=== PATIENT | female | born 1965 | race Caucasian/White ===

== ENCOUNTER 2019-05-19 21:11 | Emergency (ER) | payer SELFPAY ==
[2019-05-19 21:38] VITALS: TEMP 98.3; BMI 25.7
[2019-05-19] MEDS ORDERED: LIDOCAINE PATCH REMOVAL MC SCH (22:00)
--- NOTE | 2019-05-19 22:36 | PDOC ---
Attending Attestation - Resident Resident Name: Afshin Henderson - ED Attending Attestation I have performed the following: I have examined & evaluated the patient, The case was reviewed & discussed with the resident, I agree w/resident's findings & plan - HPI HPI: 05/20/19 06:19 Pt comes with back pain; was seen at [facility] by a PA who told her that she may have an aortic aneurysm. They scared her and she came to the ER. Here BP is divergent in her arms. No tearing back pain. Only paraspinal back pain. - Physicial Exam PE: 05/19/19 23:11 Low back paraspinal muscle spasm and pain with palpation, however pain is not intense. Pt has BP left arm 152/90; right arm 177/99 Pt is afebrile. Normal heart and lungs No flank pain and no abd pain and no extremity pains. - Medical Decision Making 05/20/19 00:42 Patient Name: ALEXSANDER HERNANDEZ THIS IS A PRELIMINARY REPORT FROM [facility] DATE OF SERVICE: 2019-05-19 23:19:12 IMAGES: 34 EXAM: AORTA US HISTORY: Lower back pain. COMPARISON: None. Preliminary findings/impression: The abdominal aorta is normal in caliber, without evidence of aneurysmal dilation.
[2019-05-19] MEDS ORDERED: ACETAMINOPHEN 500 MG TABLET (FP) PO ONE (22:46)
[2019-05-19] MEDS ORDERED: LIDOCAINE 5% TOPICAL PATCH TP ONE (22:47)
[2019-05-19] MEDS ORDERED: ACETAMINOPHEN 325 MG TABLET (FP) ONE (22:50)
[2019-05-19] MEDS ORDERED: LIDOCAINE 5% TOPICAL PATCH ONE (22:51)
--- NOTE | 2019-05-19 23:02 | PDOC ---
History of Present Illness - General Chief Complaint: Back Pain Stated Complaint: BACK PAIN Time Seen by Provider: 05/19/19 22:24 History Source: Patient, Friend ("Sister in [place]" present at bedside.) Exam Limitations: No Limitations - History of Present Illness Initial Comments: HPI: 53 y/o female presenting to [facility] ER on referral from Latoya Majano by MELONIE Bueno for further evaluation of back pain. Pt reports she has been experiencing bilateral lower back pain since Tuesday of last week. Pain is worse early in the morning and when bending at the waist. One episode of worse pain with radiation to the front of her abdomen on . Attempted relief with Motrin and two doses of an unknown antibiotic with limited success. Believes she lifted water bottles the day before. Denies urinary retention, bowel incontinence, or numbness/tinging in lower extremities. Denies h/o of STDs. Medical Hx: - H/o of uterine fibroids - Pt is post menopausal Review of Systems: In addition to that documented in the HPI above, the additional ROS was obtained : Constitutional: Denies fevers or syncope ENMT: Denies sore throat CV: Denies chest pain Resp: Denies SOB GI: Denies vomiting, diarrhea, or constipation : Denies dysuria, hematuria, or urinary frequency Physical Examination: Constitutional: Well-developed, well-nourished adult female in no acute distress or obvious discomfort. Found sitting in hospital chair. Answered all questions appropriately and completely. Speech was non-labored, non-pressured. Head: Normocephalic. No obvious external signs of trauma. Cardiovascular / Chest: Regular rate and regular rhythm. No murmur, rubs, clicks , or gallops. Peripheral pulses: radial pulses full. Respiratory: Breathing unlabored. Equal chest rise and fall. Clear to auscultation bilaterally. No stridor, no wheezing, no rhonchi. Gastrointestinal: abdomen is soft, non-tender, non-distended.No pulsatile masses. Neuro: Alert and oriented x4. Moving all four extremities spontaneously. Gait normal. MSK: Diffuse tenderness to bilateral lower paraspinal areas. Pain reproducible with bending at the past. No change with lateral rotation. No midline tenderness or obvious deformity. Skin: Warm, dry, and intact. : No R or L CVA tenderness. Psych: Affect: appropriate. Mood: normal. Past History - Past Medical History Allergies/Adverse Reactions: Allergies Allergy/AdvReac Type Severity Reaction Status Date / Time No Known Allergies Allergy Verified 05/19/19 21:37 - Psycho Social/Smoking Cessation Hx Smoking History: Never smoked *Physical Exam - Vital Signs Last Vital Signs Temp Pulse Resp BP Pulse Ox 98.3 F 77 19 146/83 99 05/19/19 21:34 05/19/19 21:34 05/19/19 21:34 05/19/19 21:34 05/19/19 21:34 ED Treatment Course - RADIOLOGY Radiograph Interpretation: U/S Eval of Aorta: THIS IS A PRELIMINARY REPORT FROM [facility] DATE OF SERVICE: 2019-05-19 23:19:12 IMAGES: 34 EXAM: AORTA US HISTORY: Lower back pain. COMPARISON: None. Preliminary findings/impression: The abdominal aorta is normal in caliber, without evidence of aneurysmal dilation. THIS DOCUMENT HAS BEEN ELECTRONICALLY SIGNED Vazquez Wood MD 05/20/2019 00:17 EST - Medications Given in the ED: ED Medications Discontinued Medications Generic Name Dose Route Start Last Admin Trade Name Germain PRN Reason Stop Dose Admin Acetaminophen 975 mg 05/19/19 22:46 05/19/19 22:55 Tylenol - PO 05/19/19 22:47 975 mg ONCE ONE Administration Lidocaine 1 patch 05/19/19 22:47 05/19/19 22:55 Lidoderm Patch - TP 05/19/19 22:48 1 patch ONCE ONE Administration Discharge - Discharge Information Problems reviewed: Yes Clinical Impression/Diagnosis: Back pain Qualifiers: Back pain location: low back pain Chronicity: acute Back pain laterality: bilateral Sciatica presence: without sciatica Qualified Code(s): M54.5 - Low back pain Condition: Good Disposition: HOME - Admission No - Follow up/Referral - Patient Discharge Instructions Patient Printed Discharge Instructions: DI for Low Back Pain Additional Instructions: You were seen today for right and left lower back pain for the past week. Your urine test was normal. Your ultrasound was normal. Your pain is likely from a muscle strain. You can take over the counter Tylenol or Advil as needed for pain. Take as directed on the package insert. Do not exceed the recommended dosage. You can also try applying heat to the area. Follow up with your primary care doctor within the next 3-4 days. You will need to call to make an appointment. A copy of todays results are attached to this packet. Take it to the appointment so your doctor can review them. Go to the nearest emergency department if your condition worsens or you feel like you need additional emergency evaluation. Print Language: AUSTRIAN - Post Discharge Activity
[2019-05-19 23:05] LABS: EPI CELLS 2.5 /HPF (0-5/HPF); HYALINE CASTS 1 /lpf (0-8); URINE APPEARANCE CLEAR; URINE BACTERIA 4.7 /hpf (NEGATIVE); URINE BILIRUBIN NEGATIVE (NEGATIVE); URINE COLOR YELLOW; URINE GLUCOSE (UA) NEGATIVE (NEGATIVE); URINE KETONE NEGATIVE (NEGATIVE); URINE LEUK ESTERASE TRACE (NEGATIVE); URINE NITRITE NEGATIVE (NEGATIVE); URINE PROTEIN NEGATIVE (NEGATIVE); URINE RBC 4 /hpf (0-4); URINE UROBILINOGEN 0.2 mg/dL (0.2-1.0); URINE WBC 3 /hpf (0-5)
[2019-05-19] MEDS ORDERED: METHOCARBAMOL 500 MG TABLET PO ONE (23:06)
[2019-05-19] MEDS ORDERED: METHOCARBAMOL 500 MG TABLET ONE (23:07)
[2019-05-20 00:45] VITALS: BP 146/87; PULSE 86
== END 2019-05-20 00:46 | disposition home or self-care (01) ==
LOC: JER 21:11
DX: M54.5 Low back pain (principal); Z86.2 Personal history of diseases of the blood and blood-forming organs and certain disorders involving the immune mechanism
CPT/HCPCS: 76775-TC; 81003; 87086; 99282-25

== ENCOUNTER 2019-09-05 17:39 | Emergency (ER) | payer OTHER ==
--- NOTE | 2019-09-05 17:53 | PDOC ---
Rapid Medical Evaluation Time Seen by Provider: 09/05/19 17:50 Medical Evaluation: Allergies Allergy/AdvReac Type Severity Reaction Status Date / Time No Known Allergies Allergy Verified 05/19/19 21:37 09/05/19 17:50 Pt presents to the ER for cough for 8 days. States she is bringing up green mucus. Exam: lungs ctab, NAD Orders: nothing Pt to proceed to the ER for further evaluation Discharge Disposition - Diagnosis Cough - Referrals - Patient Instructions - Post Discharge Activity
[2019-09-05 17:54] VITALS: BP 155/87; PULSE 109; TEMP 98.6; BMI 24.9
--- NOTE | 2019-09-05 18:30 | PDOC ---
History of Present Illness - General Chief Complaint: Cold Symptoms Stated Complaint: COLD SYMPTOMS Time Seen by Provider: 09/05/19 17:50 History Source: Patient - History of Present Illness Timing/Duration: reports: week Past History - Past Medical History Allergies/Adverse Reactions: Allergies Allergy/AdvReac Type Severity Reaction Status Date / Time No Known Allergies Allergy Verified 05/19/19 21:37 COPD: No Kidney Stones: No - Immunization History Immunization Up to Date: No - Psycho Social/Smoking Cessation Hx Smoking History: Never smoked Have you smoked in the past 12 months: No Information on smoking cessation initiated: No Hx Alcohol Use: No Drug/Substance Use Hx: No Review of Systems - Review of Systems Constitutional: No: Chills, Fever Respiratory: Yes: Cough. No: Shortness of Breath, Wheezing, Hemoptysis Cardiac (ROS): No: Chest Pain *Physical Exam - Vital Signs Last Vital Signs Temp Pulse Resp BP Pulse Ox 98.6 F 109 H 16 155/87 100 09/05/19 17:51 09/05/19 17:51 09/05/19 17:51 09/05/19 17:51 09/05/19 17:51 - Physical Exam General Appearance: Yes: Appropriately Dressed. No: Apparent Distress HEENT: positive: Normal ENT Inspection, Normal Voice, TMs Normal, Pharynx Normal. negative: Scleral Icterus (R), Scleral Icterus (L) Neck: positive: Supple Respiratory/Chest: positive: Lungs Clear, Normal Breath Sounds. negative: Respiratory Distress Integumentary: positive: Dry, Warm Neurologic: positive: Fully Oriented, Alert, Normal Mood/Affect Medical Decision Making - Medical Decision Making 09/05/19 18:28 54 yo F, denies any past medical history here with mostly dry cough for a week. No hemoptysis chest pain shortness of breath fever or chills. No tobacco use patient well-appearing and stable with normal exam. Most likely viral URI. DC with supportive treatment Discharge - Discharge Information Problems reviewed: Yes Clinical Impression/Diagnosis: Cough Condition: Good Disposition: HOME - Follow up/Referral Referrals: Jag Shaw MD [Primary Care Provider] - - Patient Discharge Instructions Patient Printed Discharge Instructions: DI for Viral Upper Respiratory Infection -- Adult - Post Discharge Activity
== END 2019-09-05 18:42 | disposition home or self-care (01) ==
LOC: JERFT 17:39
DX: R05 Cough (principal)
CPT/HCPCS: 99281-25

== ENCOUNTER 2020-07-10 12:20 | Emergency (ER) | payer OTHER ==
[2020-07-10 12:35] VITALS: BP 139/82; PULSE 106; TEMP 97.4; BMI 22.3
[2020-07-10 13:59] LABS: HEMATOCRIT 43.8 % (32.4-45.2); HEMOGLOBIN 14.1 GM/dL (10.7-15.3); MCH 28.2 pg (25.7-33.7); MCHC 32.2 g/dl (32.0-36.0); MEAN CELL VOLUME 87.5 fl (80-96); MEAN PLT VOLUME 8.8 fl (7.5-11.1); PLATELET COUNT 196 K/MM3 (134-434); RBC 5.01 M/mm3 (3.60-5.2); RDW 13.5 % (11.6-15.6); WHITE BLOOD COUNT 11.1 K/mm3 (4.0-10.0)
[2020-07-10 14:25] LABS: CALCIUM 9.5 mg/dL (8.5-10.1)
[2020-07-10 14:27] LABS: BLOOD UREA NITROGEN 14.8 mg/dL (7-18)
[2020-07-10 14:29] LABS: CREATININE 0.8 mg/dL (0.55-1.3)
[2020-07-10 14:32] LABS: BILIRUBIN,TOTAL 0.6 mg/dL (0.2-1); TOT PROT 7.8 g/dl (6.4-8.2)
[2020-07-10 14:41] LABS: EPI CELLS 19 /uL (0-25.1); HYALINE CASTS 0 /uL (0-3.1); PH,URINE 7.5 (5.0-8.0); URINE APPEARANCE CLEAR; URINE BACTERIA 26 /uL (0-1359); URINE BILIRUBIN NEGATIVE (NEGATIVE); URINE COLOR YELLOW; URINE GLUCOSE (UA) NEGATIVE (NEGATIVE); URINE KETONE NEGATIVE (NEGATIVE); URINE LEUK ESTERASE 2+ (NEGATIVE); URINE NITRITE NEGATIVE (NEGATIVE); URINE PROTEIN NEGATIVE (NEGATIVE); URINE RBC 7 /uL (0-23.9); URINE UROBILINOGEN 0.2 mg/dL (0.2-1.0); URINE WBC 87 /uL (0-25.8)
== END 2020-07-10 16:38 | disposition home or self-care (01) ==
LOC: JER 12:20
DX: G47.00 Insomnia, unspecified (principal)
CPT/HCPCS: 36415; 70450-TC; 71046-TC-FY; 80053; 81003; 84443; 85027; 87077; 87086; 87804; 99285-25; C9803; U0003